=== PATIENT | male | born 1960 | race Caucasian/White ===

== ENCOUNTER 2021-04-18 15:50 | Emergency (ER) | payer BC ==
[2021-04-18 16:02] VITALS: BP 135/89; PULSE 84
[2021-04-18] MEDS ORDERED: methylPREDNISolone Acetate 80 MG/ML SDV ONE (16:36)
[2021-04-18 16:37] LABS: CHLORIDE,CL 105 mEq/L (98-106); SODIUM,NA 144 mEq/L (136-145)
[2021-04-18] MEDS ORDERED: cefTRIAXone 1 GM Vial IM ONE (16:54)
[2021-04-18] MEDS ORDERED: methylPREDNISolone Acetate 80 MG/ML SDV IM ONE (16:54)
[2021-04-18] MEDS ORDERED: Take Home: Azithromycin 250 MG, 2 Tab Pack PO ONE (16:55)
[2021-04-18] MEDS ORDERED: Take Home: Codeine/Promethazine 10-6.25 MG/5 ML Syrup 5 ML, 2 Cup Pack PO ONE (17:02)
--- NOTE | 2021-04-18 17:03 | EDM.PDOC ---
ED HPI GENERAL MEDICAL PROBLEM - General Chief Complaint: General Stated Complaint: SOB Time Seen by Provider: 04/18/21 16:00 Source of Information: Reports: Patient History Limitations: Reports: No Limitations - History of Present Illness INITIAL COMMENTS - FREE TEXT/NARRATIVE: Derrek is a 61 year old male who presents to ER with complaints of sinus congestion, headache, chest congestion and a cough. No fevers. No ear pain. Did have sore throat initially. Feels symptoms are worsening and settling in his chest. Relates "get these about twice per year and often get shots and a Zpack". Has had covid vaccine. Onset: Gradual Duration: Day(s):, Getting Worse Location: Reports: Chest Quality: Reports: Ache Severity: Mild Associated Symptoms: Reports: Cough, cough w sputum, Headaches, Malaise. 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 - Related Data Allergies Allergy/AdvReac Type Severity Reaction Status Date / Time No Known Allergies Allergy Verified 04/18/21 16:02 Home Meds: Home Meds Aspirin [Adult Low Dose Aspirin EC] 81 mg PO BEDTIME 10/04/15 [History] Cholecalciferol (Vitamin D3) [Vitamin D] 5,000 unit PO DAILY 10/04/15 [History] atorvaSTATin [Lipitor] 20 mg PO BEDTIME 10/04/15 [History] Ascorbic Acid [Vitamin C] 50 mg PO DAILY 04/18/21 [History] Azithromycin 250 mg PO DAILY #2 tablet 04/18/21 [Rx] Magnesium 500 mg PO DAILY 04/18/21 [History] Mecobalamin [B12 Active] 1 tab PO DAILY 04/18/21 [History] Zinc 50 mg PO DAILY 04/18/21 [History] Past Medical History HEENT History: Reports: Other (See Below) Other HEENT History: meniere's disease right ear. surgery right ear. Cardiovascular History: Reports: High Cholesterol, Hypertension Respiratory History: Reports: Pneumonia, Recurrent Psychiatric History: Reports: Anxiety Social & Family History - Family History Family Medical History: No Pertinent Family History Cardiac: Reports: Hypertension Endocrine/Metabolic: Reports: Diabetes, type II - Tobacco Use Tobacco Use Status *Q: Never Tobacco User Second Hand Smoke Exposure: No - Caffeine Use Caffeine Use: Reports: Coffee ED ROS GENERAL - Review of Systems Review Of Systems: See Below Constitutional: Reports: Malaise, Weakness, Fatigue. Denies: Fever, Chills, Decreased Appetite HEENT: Reports: Rhinitis, Sinus Problem, Throat Pain. Denies: Ear Pain Respiratory: Reports: Shortness of Breath, Wheezing, Cough Cardiovascular: Denies: Chest Pain, Edema, Lightheadedness Endocrine: Reports: Fatigue GI/Abdominal: Denies: Abdominal Pain, Constipation, Diarrhea, Nausea : Reports: No Symptoms Musculoskeletal: Reports: No Symptoms Skin: Reports: No Symptoms Neurological: Reports: Headache ED EXAM, GENERAL - Physical Exam Exam: See Below Exam Limited By: No Limitations General Appearance: Alert, WD/WN, No Apparent Distress, Other (does have frequent cough) Ears: Normal External Exam, Normal TMs Nose: Normal Inspection, Nasal Drainage, Other (maxillary sinus tenderness with palpation) Throat/Mouth: Normal Inspection, Normal Oropharynx Head: Normocephalic Neck: Normal Inspection, Supple, Non-Tender Respiratory/Chest: No Respiratory Distress, Lungs Clear, Normal Breath Sounds Cardiovascular: Regular Rate, Rhythm GI/Abdominal: Normal Bowel Sounds, Soft, Non-Tender Extremities: Normal Inspection, No Pedal Edema Neurological: Alert, Oriented Skin Exam: Warm, Dry Course - Vital Signs Last Recorded V/S: Last Vital Signs Temp 98.1 F 04/18/21 15:52 Pulse 84 04/18/21 15:52 Resp 18 04/18/21 15:52 BP 135/89 04/18/21 15:52 Pulse Ox 95 04/18/21 15:52 - Orders/Labs/Meds Orders: Active Orders 24 hr Category Date Time Status Chest 2V [CR] Stat Exams 04/18/21 16:10 Taken Labs: Laboratory Tests 04/18/21 04/18/21 04/18/21 Range/Units 16:00 16:20 16:20 WBC 11.3 H (4.0-11.0) 10^3/uL RBC 4.75 (4.50-6.00) x10^6/uL Hgb 14.3 (14.0-18.0) g/dL Hct 43.7 (42.0-52.0) % MCV 92.0 (83.0-97.0) fL MCH 30.1 (27.0-32.0) pg MCHC 32.7 (32.0-36.0) g/dL RDW Coeff of [place] 12.2 (11.0-15.0) % Plt Count 270 (150-400) 10^3/uL Immature Gran % (Auto) 0.4 (0.0-4.9) % Neut % (Auto) 67.1 (41-71) % Lymph % (Auto) 14.4 L (24-44) % Hartley % (Auto) 15.5 H (0-10) % Eos % (Auto) 2.0 (0-6) % Baso % (Auto) 0.6 (0-1) % Neut # (Auto) 7.56 (1.80-8.00) x10^3/uL Lymph # (Auto) 1.62 (0.60-5.00) 10^3/uL Hartley # (Auto) 1.74 H (0.00-1.50) 10^3/uL Eos # (Auto) 0.23 (0.00-1.50) 10^3/uL Baso # (Auto) 0.07 (0.00-0.50) 10^3/uL Immature Gran # (Auto) 0.04 (0.00-0.49) 10^3/uL D-Dimer, Quantitative (0.00-0.50) Sodium (136-145) mEq/L Potassium (3.5-5.0) mEq/L Chloride (98-106) mEq/L Carbon Dioxide (21-32) mmol/L BUN (7-18) mg/dL Creatinine (0.7-1.3) mg/dL Est Cr Clr Drug Dosing mL/min Estimated GFR (MDRD) (>=60) mL/min Glucose (75-99) mg/dL Lactic Acid 0.7 (0.4-2.0) mmol/L Calcium (8.4-10.1) mg/dL Total Bilirubin (0.0-1.0) mg/dL AST (15-37) U/L ALT (12-78) U/L Alkaline Phosphatase (46-116) U/L Troponin I High Sens (<=76) pg/mL C-Reactive Protein (0.2-0.8) mg/dL Total Protein (6.4-8.2) g/dL Albumin (3.4-5.0) g/dL SARS CoV-2 RNA Rapid MANNY Negative (NEGATIVE) 04/18/21 04/18/21 Range/Units 16:20 16:20 WBC (4.0-11.0) 10^3/uL RBC (4.50-6.00) x10^6/uL Hgb (14.0-18.0) g/dL Hct (42.0-52.0) % MCV (83.0-97.0) fL MCH (27.0-32.0) pg MCHC (32.0-36.0) g/dL RDW Coeff of [place] (11.0-15.0) % Plt Count (150-400) 10^3/uL Immature Gran % (Auto) (0.0-4.9) % Neut % (Auto) (41-71) % Lymph % (Auto) (24-44) % Hartley % (Auto) (0-10) % Eos % (Auto) (0-6) % Baso % (Auto) (0-1) % Neut # (Auto) (1.80-8.00) x10^3/uL Lymph # (Auto) (0.60-5.00) 10^3/uL Hartley # (Auto) (0.00-1.50) 10^3/uL Eos # (Auto) (0.00-1.50) 10^3/uL Baso # (Auto) (0.00-0.50) 10^3/uL Immature Gran # (Auto) (0.00-0.49) 10^3/uL D-Dimer, Quantitative 0.42 (0.00-0.50) Sodium 144 (136-145) mEq/L Potassium 3.9 (3.5-5.0) mEq/L Chloride 105 (98-106) mEq/L Carbon Dioxide 27 (21-32) mmol/L BUN 14 (7-18) mg/dL Creatinine 1.1 (0.7-1.3) mg/dL Est Cr Clr Drug Dosing 66.50 mL/min Estimated GFR (MDRD) > 60 (>=60) mL/min Glucose 86 (75-99) mg/dL Lactic Acid (0.4-2.0) mmol/L Calcium 9.3 (8.4-10.1) mg/dL Total Bilirubin 0.3 (0.0-1.0) mg/dL AST 13 L (15-37) U/L ALT 27 (12-78) U/L Alkaline Phosphatase 92 (46-116) U/L Troponin I High Sens < 4 (<=76) pg/mL C-Reactive Protein 2.0 H (0.2-0.8) mg/dL Total Protein 8.2 (6.4-8.2) g/dL Albumin 3.9 (3.4-5.0) g/dL SARS CoV-2 RNA Rapid MANNY (NEGATIVE) Meds: Medications Discontinued Medications Generic Name Dose Route Start Last Admin Trade Name Haroldoq PRN Reason Stop Dose Admin Azithromycin 2 packet 04/18/21 16:55 04/18/21 17:08 Take Home: Azithromycin 250 Mg, 2 Tab Pack PO 04/18/21 16:56 2 packet ONETIME ONE Administration Ceftriaxone Sodium 1 gm 04/18/21 16:54 04/18/21 17:06 Ceftriaxone 1 Gm Vial IM 04/18/21 16:55 1 gm ONETIME ONE Administration Methylprednisolone Acetate 80 mg 04/18/21 16:54 04/18/21 17:07 Methylprednisolone Acetate 80 Mg/Ml Sdv IM 04/18/21 16:55 80 mg ONETIME ONE Administration Methylprednisolone Acetate Confirm 04/18/21 16:36 Methylprednisolone Acetate 80 Mg/Ml Sdv Administered 04/18/21 16:37 Dose 80 mg .ROUTE .STK-MED ONE Promethazine HCl/Codeine 2 packet 04/18/21 17:02 04/18/21 17:08 Take Home: Codeine/Promethazine 10-6.25 Mg/5 Ml Syrup 5 Ml, 2 Cup Pack PO 04/18/21 17:03 2 packet ONETIME ONE Administration - Re-Assessments/Exams Free Text/Narrative Re-Assessment/Exam: 04/18/21 Labs normal. Covid negative. Chest xray normal. Injections given. Departure - Departure Time of Disposition: 16:58 Disposition: Home, Self-Care 01 Condition: Good Clinical Impression: Sinusitis, Bronchitis - Discharge Information *PRESCRIPTION DRUG MONITORING PROGRAM REVIEWED*: No *COPY OF PRESCRIPTION DRUG MONITORING REPORT IN PATIENT ISADORA: No Prescriptions: Azithromycin 250 mg PO DAILY #2 tablet Instructions: Sinusitis, Adult, [id number], Acute Bronchitis, Adult Referrals: Meng Nichole MD [Primary Care Provider] - Forms: ED Department Discharge Additional Instructions: 1. Push fluids 2. Alternate tylenol with ibuprofen for fever/headache/discomfort 3. Azithromycin 250 mg 2 tabs today then one tab daily for 4 days 4. Prometh with codeine 1-2 tsp every 6 hours as needed for cough 5. Follow up with Dr. Nichole for persisting concerns. Sepsis Event Note (ED) - Evaluation Sepsis Screening Result: No Definite Risk - Focused Exam Vital Signs: Vital Signs Temp Pulse Resp BP Pulse Ox 04/18/21 15:52 98.1 F 84 18 135/89 95 - My Orders Last 24 Hours: My Active Orders 04/18/21 16:10 Chest 2V [CR] Stat - Assessment/Plan Last 24 Hours: My Active Orders 04/18/21 16:10 Chest 2V [CR] Stat
== END 2021-04-18 17:15 | disposition home or self-care (01) ==
LOC: CC.ED 15:50
DX: J40 Bronchitis, not specified as acute or chronic (principal); J32.9 Chronic sinusitis, unspecified; E78.00 Pure hypercholesterolemia, unspecified; I10 Essential (primary) hypertension; Z79.82 Long term (current) use of aspirin; Z79.899 Other long term (current) drug therapy; Z20.822 Contact with and (suspected) exposure to COVID-19
CPT/HCPCS: 36415; 71046; 80053; 83605; 84484; 85025; 85379; 86140; 93005; 96372; 99284-25; A9270-GY; J0696; J1040; U0002

== ENCOUNTER 2022-04-21 03:52 | Emergency (ER) | payer BC ==
[2022-04-21] MEDS ORDERED: Ketorolac 30 MG/ML SDV ONE (06:00)
[2022-04-21] MEDS ORDERED: diphenhydrAMINE 50 MG/ML SDV ONE (06:00)
[2022-04-21] MEDS ORDERED: Metoclopramide 10 MG/2 ML SDV ONE (06:00)
[2022-04-21] MEDS ORDERED: HYDROmorphone 1 MG/ML Syringe ONE (06:00)
== END 2022-04-21 06:00 | disposition home or self-care (01) ==
LOC: CC.ED 03:52
DX: G44.209 Tension-type headache, unspecified, not intractable (principal); E78.00 Pure hypercholesterolemia, unspecified; I10 Essential (primary) hypertension; Z79.899 Other long term (current) drug therapy; Z79.82 Long term (current) use of aspirin
CPT/HCPCS: 96374; 96375; 99283; 99284; J1170; J1200; J1885; J2765; J7030

== ENCOUNTER 2023-09-27 14:23 | Observation (INO) | payer MEDICARE, BC ==
[2023-09-27 14:52] LABS: BASOPHILS ABSOLUTE AUTO 0.01 10^3/uL (0.00-0.50); BASOPHILS PERCENT AUTO 0.1 % (0-1); EOSINOPHILS ABSOLUTE AUTO 0.03 10^3/uL (0.00-1.50); EOSINOPHILS PERCENT AUTO 0.2 % (0-6); HEMATOCRIT 41.4 % (42.0-52.0); HEMOGLOBIN 13.2 g/dL (14.0-18.0); IMMATURE GRAN ABSOLUTE AUTO 0.03 10^3/uL (0.00-0.49); IMMATURE GRAN PERCENT AUTO 0.2 % (0.0-4.9); LYMPHOCYTES ABSOLUTE AUTO 0.68 10^3/uL (0.60-5.00); LYMPHOCYTES PERCENT AUTO 4.6 % (24-44); MEAN CORPUSCULAR HEMOGLOBIN 28.4 pg (27.0-32.0); MEAN CORPUSCULAR HGB CONC 31.9 g/dL (32.0-36.0); MONOCYTES ABSOLUTE AUTO 1.89 10^3/uL (0.00-1.50); MONOCYTES PERCENT AUTO 12.9 % (0-10); NEUTROPHILS ABSOLUTE AUTO 12.06 x10^3/uL (1.80-8.00); PLATELET COUNT,PLT 235 10^3/uL (150-400); RED BLOOD CELL COUNT 4.65 x10^6/uL (4.50-6.00); WHITE BLOOD CELL COUNT,WBC 14.7 10^3/uL (4.0-11.0)
[2023-09-27 14:58] LABS: APPEARANCE,URINE SLIGHTLY CLOUDY (CLEAR); BILIRUBIN,URINE SMALL (NEGATIVE); COLOR,URINE DARK YELLOW (YELLOW); GLUCOSE,URINE NEGATIVE (NEGATIVE); KETONES,URINE 40 mg/dL (NEGATIVE); LEUKOCYTE ESTERASE,URINE NEGATIVE (NEGATIVE); NITRITE,URINE NEGATIVE (NEGATIVE); OCCULT BLOOD,URINE MODERATE (NEGATIVE); PH,URINE 5.5 (4.5-8.0); PROTEIN,URINE >=300 mg/dL (NEGATIVE); UROBILINOGEN,URINE 0.2 EU/dL (0.2-1.0)
[2023-09-27 15:06] LABS: BACTERIA,URINE FEW /HPF (NOT SEEN); GRANULAR CASTS,URINE MODERATE /LPF (NOT SEEN); SQUAMOUS EPITHELIAL CELLS,UR NOT SEEN /HPF (NOT SEEN); WBC,URINE 0-5 /HPF (0-5)
[2023-09-27 15:07] LABS: ALANINE AMINOTRANSFERASE,ALT 15 U/L (12-78); ALBUMIN 3.1 g/dL (3.4-5.0); ALKALINE PHOSPHATASE 104 U/L (46-116); ASPARTATE AMNIOTRANSFERASE,AST 12 U/L (15-37); BILIRUBIN TOTAL 0.7 mg/dL (0.0-1.0); BLOOD UREA NITROGEN,BUN 18 mg/dL (7-18); C-REACTIVE PROTEIN 23.69 mg/dL (<=0.50); CALCIUM 8.9 mg/dL (8.4-10.1); CARBON DIOXIDE,CO2 23 mmol/L (21-32); CHLORIDE,CL 97 mEq/L (98-106); CREATININE 1.5 mg/dL (0.7-1.3); ESTIMATED GFR 51 mL/min (>=60); GLUCOSE RANDOM 124 mg/dL (75-99); POTASSIUM,K 3.8 mEq/L (3.5-5.0); PROTEIN TOTAL,TP 7.8 g/dL (6.4-8.2); SODIUM,NA 132 mEq/L (136-145)
[2023-09-27] MEDS ORDERED: Ondansetron 4 MG/2 ML SDV IV PRN (15:26)
[2023-09-27] MEDS ORDERED: Acetaminophen 325 MG Tab PO PRN (15:26)
[2023-09-27 15:59] LABS: MAGNESIUM 1.7 mg/dL (1.8-2.4)
[2023-09-27] MEDS: Sodium Chloride 0.9% 1,000 ML IV ONE ×2 (16:12→17:13)
[2023-09-27] MEDS: Famotidine 20 MG/2 ML SDV IVPUSH ONE (16:13)
[2023-09-27] MEDS: Metoclopramide 10 MG/2 ML SDV IVPUSH ONE (16:16)
[2023-09-27] MEDS: Ketorolac 30 MG/ML SDV IVPUSH ONE (16:18)
[2023-09-27] MEDS: Aspirin 81 MG Tab.EC PO SCH (19:28)
[2023-09-27] MEDS: Melatonin 3 MG Tab PO SCH (19:28)
[2023-09-27] MEDS: Doxylamine Succinate 25 MG Tab PO SCH (19:28)
[2023-09-27] MEDS: Loperamide 2 MG Cap PO ONE (21:08)
[2023-09-28] MEDS: atorvaSTATin 20 MG Tab PO SCH (08:02)
[2023-09-28 08:17] LABS: BASOPHILS ABSOLUTE AUTO 0.01 10^3/uL (0.00-0.50); BASOPHILS PERCENT AUTO 0.2 % (0-1); EOSINOPHILS ABSOLUTE AUTO 0.01 10^3/uL (0.00-1.50); EOSINOPHILS PERCENT AUTO 0.2 % (0-6); HEMATOCRIT 32.8 % (42.0-52.0); HEMOGLOBIN 10.5 g/dL (14.0-18.0); IMMATURE GRAN ABSOLUTE AUTO 0.03 10^3/uL (0.00-0.49); IMMATURE GRAN PERCENT AUTO 0.5 % (0.0-4.9); LYMPHOCYTES ABSOLUTE AUTO 1.27 10^3/uL (0.60-5.00); LYMPHOCYTES PERCENT AUTO 20.1 % (24-44); MEAN CORPUSCULAR HEMOGLOBIN 28.7 pg (27.0-32.0); MEAN CORPUSCULAR VOLUME 89.6 fL (83.0-97.0); MONOCYTES PERCENT AUTO 25.3 % (0-10); NEUTROPHILS PERCENT AUTO 53.7 % (41-71); PLATELET COUNT,PLT 180 10^3/uL (150-400); RED BLOOD CELL COUNT 3.66 x10^6/uL (4.50-6.00); WHITE BLOOD CELL COUNT,WBC 6.3 10^3/uL (4.0-11.0)
[2023-09-28 09:02] LABS: ALBUMIN 2.3 g/dL (3.4-5.0); BILIRUBIN TOTAL 0.4 mg/dL (0.0-1.0); CALCIUM 8.2 mg/dL (8.4-10.1); CREATININE 1.3 mg/dL (0.7-1.3); EST CRCL DRUG DOSING (CG) 54.81 mL/min; POTASSIUM,K 3.5 mEq/L (3.5-5.0)
[2023-09-28 09:28] VITALS: BP 99/81; PULSE 95
[2023-09-28] MEDS ORDERED: Enoxaparin 40 MG/0.4 ML Syringe SUBCUT SCH (12:00)
== END 2023-09-28 11:00 | disposition home or self-care (01) ==
LOC: CC.FCMC 14:23 → CC.MS 14:23 → INTOOBSV 14:53 → UNDOADMOB 14:53 → CC.MS 15:26
PROVIDERS: ADMIT Family Medicine; ATTEND Physician Assistant Medical
DX: K52.9 Noninfective gastroenteritis and colitis, unspecified (principal); E86.0 Dehydration; R11.10 Vomiting, unspecified; A08.4 Viral intestinal infection, unspecified; R19.7 Diarrhea, unspecified; R50.9 Fever, unspecified; C88.0 Waldenstrom macroglobulinemia; E87.1 Hypo-osmolality and hyponatremia; N17.9 Acute kidney failure, unspecified; I10 Essential (primary) hypertension; E78.00 Pure hypercholesterolemia, unspecified; E11.9 Type 2 diabetes mellitus without complications; Z79.899 Other long term (current) drug therapy; Z79.82 Long term (current) use of aspirin
CPT/HCPCS: 36415; 74019; 80053; 81001; 83605; 83735; 85025; 86140; 87040; A9270; J1885; J2765; J3490; J7030; 96361; 96374; 96375; 99223; 99238; G0378